=== PATIENT | female | born 1950 | race Caucasian/White ===

== ENCOUNTER 2018-12-29 20:10 | Inpatient (IN) | payer MEDICARE, BC ==
[~2018-12-29] VITALS: Ht 167.6 cm; Wt 84.8 kg
--- NOTE | 2018-12-29 20:20 | NUR ---
Patient walked into ER with family member c/o coughing up clear phelm and SOB since this AM. Patient able to speak in clear speech. No other complaint
[2018-12-29] MEDS ORDERED: IPRATROPIUM BROMIDE 0.5 MG/2.5 ML NEBU NEB ONE (20:45)
[2018-12-29] MEDS ORDERED: ALBUTEROL SULFATE 2.5 MG/3 ML NEBU NEB ONE ×3 (20:45→22:45)
[2018-12-29] MEDS ORDERED: IPRATROPIUM BROMIDE 0.5 MG/2.5 ML NEBU ONE (20:47)
[2018-12-29] MEDS ORDERED: ALBUTEROL SULFATE 2.5 MG/ 0.5 ML NEBU ONE (20:48)
[2018-12-29 21:00] LABS: BASOPHILS # (AUTO) 0.1 K/uL (0.0-8.0); BASOPHILS % (AUTO) 1.1 % (0.0-2.0); EOSINOPHILS # (AUTO) 0.1 K/uL (0.0-0.7); EOSINOPHILS % (AUTO) 1.7 % (0.0-7.0); HEMATOCRIT 44.9 % (31.2-41.9); HEMOGLOBIN 15.6 g/dL (10.9-14.3); LYMPHOCYTES # (AUTO) 0.9 K/uL (20.0-40.0); LYMPHOCYTES % (AUTO) 10.9 % (20.5-51.5); MEAN CORPUSCULAR HEMOGLOBIN 33.4 uug (24.7-32.8); MEAN CORPUSCULAR HGB CONC 35 g/dL (32.3-35.6); MEAN CORPUSCULAR VOLUME 96.5 fL (75.5-95.3); MONOCYTES # (AUTO) 0.6 K/uL (2.0-10.0); MONOCYTES % (AUTO) 7.4 % (0.0-11.0); NEUTROPHILS # (AUTO) 6.2 K/uL (1.8-8.9); NEUTROPHILS % (AUTO) 78.9 % (38.5-71.5); PLATELET COUNT (AUTO) 169 K/uL (179-408); RED BLOOD CELL COUNT(AUTO) 4.66 MIL/uL (3.63-4.92); WHITE BLOOD COUNT (AUTO) 7.9 K/uL (3.8-11.8)
[2018-12-29 21:09] LABS: CREATININE 0.7 mg/dL (0.6-1.3); POTASSIUM 4.3 mmol/L (3.5-5.1)
[2018-12-29 21:21] LABS: BILIRUBIN,DIRECT 0.2 mg/dL (0.0-0.2); BILIRUBIN,TOTAL 0.9 mg/dL (0.2-1.0); TOTAL PROTEIN, SERUM 9.1 g/dL (6.4-8.2)
--- NOTE | 2018-12-29 21:28 | NUR ---
Patient states after 1st HHN TX "I feel alot better ,I can breath and cough better now."
[2018-12-29] MEDS ORDERED: predniSONE 10 MG TABLET PO ONE (21:30)
[2018-12-29] MEDS ORDERED: ALBUTEROL SULFATE 2.5 MG/3 ML NEBU ONE ×2 (21:41→22:53)
[2018-12-29] MEDS ORDERED: predniSONE 10 MG TABLET ONE (21:44)
[2018-12-29] MEDS ORDERED: predniSONE 50 MG TABLET ONE (21:45)
--- NOTE | 2018-12-29 22:18 | NUR ---
Olivia (daughter) is going to step away from facility will be back in about an hour. Phone number [phone]
--- NOTE | 2018-12-30 00:10 | NUR ---
Paged [facility] panel. Waiting for Roberto PADGETT to call back
[2018-12-30] MEDS ORDERED: MAGNESIUM HYDROXIDE 30 ML LIQUID UDC PO PRN (00:15)
[2018-12-30] MEDS ORDERED: ONDANSETRON 4 MG/2 ML VIAL IV PRN (00:15)
[2018-12-30] MEDS ORDERED: HYDROCODONE/APAP 5-325MG TABLET PO PRN (00:15)
[2018-12-30] MEDS ORDERED: TEMAZEPAM 15 MG CAPSULE PO PRN (00:15)
[2018-12-30] MEDS ORDERED: MORPHINE SULFATE 2 MG/1 ML DISP.SYRIN IV PRN (00:15)
[2018-12-30] MEDS ORDERED: ACETAMINOPHEN 325 MG TABLET PO PRN (00:15)
--- NOTE | 2018-12-30 00:18 | NUR ---
Dr Stauffer speaking with Rolo Mejia NP
--- NOTE | 2018-12-30 00:50 | NUR ---
Transfered to 3rd floor via wheelchair
[2018-12-30 01:15] VITALS: BP 114/78
--- NOTE | 2018-12-30 01:27 | NUR ---
Received patient from ER with daughter. Dx: COPD exacerbation. Patient is A/Ox4. Denies any medical history other than having PNA in 2006. No signs of acute distress noted. No complaints of pain or SOB at this time. Stated that her breathing feels much better. Noted with bilateral upper lobe expiratory wheezes. Patient oriented to unit and room. Safety measures initiated. Bed is low and locked, call light within reach. Will continue with admission process.
[2018-12-30 04:00] VITALS: BP 132/74
[2018-12-30] MEDS: methylPREDNISolone SOD SUCC 40 MG/ML VIAL IV SCH ×3 (06:03→21:56)
[2018-12-30] MEDS: PANTOPRAZOLE SODIUM 40 MG TABLET.DR PO SCH (06:10)
[2018-12-30 11:30] VITALS: BP 146/79
[2018-12-30] MEDS: IPRATROPIUM BROMIDE 0.5 MG/2.5 ML NEBU NEB PRN ×3 (15:13→22:28)
[2018-12-30] MEDS: ALBUTEROL SULFATE 2.5 MG/3 ML NEBU NEB PRN ×3 (15:13→22:28)
[2018-12-30 15:34] VITALS: BP 151/87
--- NOTE | 2018-12-30 19:30 | NUR ---
Received patient awake, sitting up on bed, not in any form of distress. On room air, tolerated. Noted with IV access at left AC to saline lock, patent and intact. No complaints at the moment. Patient able to ambulate. Bed in low position, locked, side rails up x 2 for safety, call light within reach. Noise and lights subdued. Will continue to monitor.
[2018-12-30 20:00] VITALS: BP 155/76
[2018-12-31] VITALS: BP 139/75
[2018-12-31 04:00] VITALS: BP 113/68
[2018-12-31] MEDS: PANTOPRAZOLE SODIUM 40 MG TABLET.DR PO SCH (06:28)
[2018-12-31] MEDS: methylPREDNISolone SOD SUCC 40 MG/ML VIAL IV SCH (06:28)
[2018-12-31 07:39] LABS: MAGNESIUM 2.2 mg/dL (1.8-2.4); PHOSPHOROUS 3.6 mg/dL (2.5-4.9); POTASSIUM 4.8 mmol/L (3.5-5.1)
[2018-12-31 07:43] LABS: BASOPHILS % (AUTO) 0.1 % (0.0-2.0); EOSINOPHILS % (AUTO) 0.1 % (0.0-7.0); HEMATOCRIT 43.1 % (31.2-41.9); HEMOGLOBIN 14.7 g/dL (10.9-14.3); LYMPHOCYTES # (AUTO) 0.9 K/uL (20.0-40.0); LYMPHOCYTES % (AUTO) 6.8 % (20.5-51.5); MEAN CORPUSCULAR HEMOGLOBIN 33.4 uug (24.7-32.8); MEAN CORPUSCULAR HGB CONC 34 g/dL (32.3-35.6); MEAN CORPUSCULAR VOLUME 97.7 fL (75.5-95.3); MONOCYTES # (AUTO) 0.6 K/uL (2.0-10.0); MONOCYTES % (AUTO) 4.2 % (0.0-11.0); NEUTROPHILS # (AUTO) 11.8 K/uL (1.8-8.9); NEUTROPHILS % (AUTO) 88.8 % (38.5-71.5); PLATELET COUNT (AUTO) 208 K/uL (179-408); RED BLOOD CELL COUNT(AUTO) 4.42 MIL/uL (3.63-4.92)
[2018-12-31 07:57] LABS: WHITE BLOOD COUNT (AUTO) 13.3 K/uL (3.8-11.8)
[2018-12-31 08:02] LABS: THYROID STIMULATING HORMONE 1.632 mIU/mL (0.358-3.740)
[2018-12-31] MEDS ORDERED: MORPHINE SULFATE 4 MG/1 ML DISP.SYRIN IV PRN (09:45)
[2018-12-31 11:32] VITALS: BP 142/76
== END 2018-12-31 14:00 | disposition home or self-care (01) | DRG 192 ==
LOC: ER 20:12 → TELE3 12-30 00:15
PROVIDERS: ADMIT Nurse Practitioner Acute Care
DX: J44.1 Chronic obstructive pulmonary disease with (acute) exacerbation (principal); D69.6 Thrombocytopenia, unspecified; F17.210 Nicotine dependence, cigarettes, uncomplicated; D75.1 Secondary polycythemia; E86.0 Dehydration; R00.0 Tachycardia, unspecified; E83.52 Hypercalcemia
CPT/HCPCS: 36415; 70030-TC; 71045; 83735; 84100; 84443; 85025; 87040; 93005; 94640; A4663; G0378; J2920; J3590; J7512